=== PATIENT | female | born 1990 | race Caucasian/White ===

== ENCOUNTER → 2024-04-16 09:04 | Outpatient (BNVA) | payer OTHER, SELFPAY | PROVIDERS: Visit Provider Family Medicine | DX: Z01.89 Encounter for other specified special examinations (principal); R53.83 Other fatigue | CPT/HCPCS: 80053; 80061; 82670; 83001; 83002; 84144; 84443; 85025; 85651 ==

== ENCOUNTER → 2024-08-07 07:03 | Outpatient (BNVA) | payer OTHER, SELFPAY | PROVIDERS: Visit Provider Nurse Practitioner Family | DX: R94.31 Abnormal electrocardiogram [ECG] [EKG] (principal) | CPT/HCPCS: 80053 ==

== ENCOUNTER → 2024-12-09 15:15 | Outpatient (BNVA) | payer OTHER, SELFPAY | PROVIDERS: Visit Provider Family Medicine | DX: K21.9 Gastro-esophageal reflux disease without esophagitis (principal); R19.5 Other fecal abnormalities; R14.0 Abdominal distension (gaseous); R10.30 Lower abdominal pain, unspecified; N83.201 Unspecified ovarian cyst, right side; N83.202 Unspecified ovarian cyst, left side; D64.9 Anemia, unspecified; E55.9 Vitamin D deficiency, unspecified; R79.89 Other specified abnormal findings of blood chemistry | CPT/HCPCS: 80053; 80061; 82306; 82533; 82607; 82670; 82728; 82746; 83550; 84144; 84439; 84443; 85027; 85651; 86140; 86677 ==

== ENCOUNTER 2024-12-19 10:15 | Outpatient (CLI) | payer OTHER, SELFPAY ==
--- NOTE | 2024-12-19 10:30 | US_ITS ---
WS: [id number] US pelvic complete* [id number] HISTORY: R10.30 - Lower abdominal pain, unspecified COMPARISON: None available. Patient declined transvaginal ultrasound. Uterus: 10.6 cm x 5.3 cm x 4.3 cm. Uterus is slightly enlarged. No fibroid or mass. Endometrium: 1.0 cm. Normal. Right ovary: 3.4 cm x 2.2 cm x 2.2 cm. Normal size and vascularity, no cystic or solid masses. Left ovary: 4.5 cm x 3.0 cm x 3.1 cm. Normal size and vascularity, no cystic or solid masses. No free fluid in the cul-de-sac. US/US pelvic complete* [id number] IMPRESSION: Normal transabdominal pelvic ultrasound. Mild uterine enlargement.
== END 2024-12-19 10:16 | disposition home or self-care (01) ==
PROVIDERS: PCP Family Medicine; Visit Provider Family Medicine
DX: R10.30 Lower abdominal pain, unspecified (principal); K92.1 Melena; N83.201 Unspecified ovarian cyst, right side; N83.202 Unspecified ovarian cyst, left side; D64.9 Anemia, unspecified; N85.2 Hypertrophy of uterus
CPT/HCPCS: 76856

== ENCOUNTER → 2025-02-16 11:31 | Outpatient (BNVA) | payer OTHER, SELFPAY | PROVIDERS: PCP Family Medicine; Visit Provider Nurse Practitioner Family | DX: R10.30 Lower abdominal pain, unspecified (principal); R14.0 Abdominal distension (gaseous) | CPT/HCPCS: 82785; 86001; 86003 ==

== ENCOUNTER → 2025-03-03 08:57 | Outpatient (BNVA) | payer OTHER, SELFPAY | PROVIDERS: PCP Family Medicine; Visit Provider Family Medicine | DX: R10.9 Unspecified abdominal pain (principal); Z91.014 Allergy to mammalian meats | CPT/HCPCS: 86003; 86008 ==